=== PATIENT | male | born 1995 | race Caucasian/White ===

== ENCOUNTER 2017-06-03 23:07 | Emergency (ER) | payer OTHER ==
[2017-06-03 23:30] VITALS: TEMP 98.9
[2017-06-04 00:03] VITALS: BP 143/90; PULSE 109; RESP 20; O2SAT 98
== END 2017-06-03 23:50 | disposition home or self-care (01) | DRG 87 ==
LOC: ED 23:07
DX: S06.9X1A Unspecified intracranial injury with loss of consciousness of 30 minutes or less, initial encounter (principal); W01.0XXA Fall on same level from slipping, tripping and stumbling without subsequent striking against object, initial encounter
CPT/HCPCS: 99283

== ENCOUNTER 2017-06-04 00:57 | Emergency (ER) | payer OTHER ==
[2017-06-04] MEDS: SODIUM CHLORIDE 0.9% 1000ML 1,000 ML IV SCH ×2 (01:10→02:16)
[2017-06-04 01:17] LABS: BASOPHILS % (AUTO) 1 % (0-3); EOSINOPHILS % (AUTO) 1 % (0-9); HEMATOCRIT 46 % (39-53); MEAN CORPUSCULAR HGB CONC 34.9 gm/dl (32.0-36.0); MEAN CORPUSCULAR VOLUME 86 fL (80-100); MONOCYTES % (AUTO) 5.5 % (0-12)
[2017-06-04 01:38] LABS: ALBUMIN 4.6 gm/dl (3.4-5.0); ALT 40 IU/L (14-63); CALCIUM 8.8 mg/dl (8.5-10.1); GLOM FILT RATE 78 mL/min (>60); POTASSIUM 3.6 mMol/L (3.5-5.1); SODIUM 143 mMol/L (136-145)
[2017-06-04 01:40] LABS: MAGNESIUM 2.3 mg/dl (1.8-2.4)
[2017-06-04 01:42] LABS: AMPHETAMINES NEGATIVE (NEGATIVE); METHADONE NEGATIVE (NEGATIVE); OPIATES(OP13) NEGATIVE (NEGATIVE); OXYCODONE(OXY) NEGATIVE (NEGATIVE); PROPOXYPHENE(PPX) NEGATIVE (NEGATIVE); TRICYCLIC ANTIDEPRESSANTS NEGATIVE (NEGATIVE)
[2017-06-04 02:38] VITALS: BP 133/71; PULSE 99; RESP 20; TEMP 98.6; O2SAT 100
== END 2017-06-04 02:28 | disposition home or self-care (01) | DRG 90 ==
LOC: ED 00:57
DX: S06.0X1A Concussion with loss of consciousness of 30 minutes or less, initial encounter (principal); R40.2142 Coma scale, eyes open, spontaneous, at arrival to emergency department; R40.2362 Coma scale, best motor response, obeys commands, at arrival to emergency department; R40.2252 Coma scale, best verbal response, oriented, at arrival to emergency department; W01.0XXA Fall on same level from slipping, tripping and stumbling without subsequent striking against object, initial encounter
CPT/HCPCS: 70450; 80053; 80305; 80307; 83735; 84484; 85025; 93005; 96365; 99284; 99285